=== PATIENT | male | born 1995 | race Caucasian/White ===

== ENCOUNTER 2023-09-23 13:28 | Inpatient (IN) | payer BC ==
[2023-09-23] MEDS ORDERED: Sodium Chloride 0.9% 10 ML Syringe FLUSH PRN ×2 (14:15→19:13)
[2023-09-23] MEDS ORDERED: Glucagon,Human Recombinant 1 MG Vial IM PRN ×2 (14:19→15:36)
[2023-09-23] MEDS ORDERED: 50% Dextrose in Water 50 ML Syringe IVPUSH PRN ×3 (14:19→17:05)
[2023-09-23] MEDS: Sodium Chloride 0.9% 1,000 ML IV ONE ×3 (14:22→16:34)
[2023-09-23 14:23] LABS: BASOPHILS ABSOLUTE AUTO 0.26 K/uL (0.00-0.10); EOSINOPHILS ABSOLUTE AUTO 0.03 K/uL (0.00-0.40); EOSINOPHILS PERCENT AUTO 0.1 % (0.0-5.4); HEMATOCRIT 46.4 % (38.4-49.7); HEMOGLOBIN 16.3 g/dL (12.9-16.9); IMMATURE GRAN PERCENT AUTO 4.1 % (0.0-0.7); LYMPHOCYTES ABSOLUTE AUTO 6.93 K/uL (0.8-3.3); MEAN CORPUSCULAR HEMOGLOBIN 31.6 pg (31.6-35.5); MEAN CORPUSCULAR HGB CONC 35.1 g/dL (31.6-35.5); MEAN CORPUSCULAR VOLUME 89.9 fL (81.4-99.0); MONOCYTES ABSOLUTE AUTO 6.35 K/uL (0.20-0.90); NEUTROPHILS ABSOLUTE AUTO 36.55 K/uL (1.0-7.6); PLATELET COUNT,PLT 346 K/uL (130-375); RED BLOOD CELL COUNT 5.16 M/uL (4.14-5.76)
[2023-09-23] MEDS: Insulin Regular, Human 100 Units/ML 3 ML Vial IVPUSH ONE ×2 (14:25→15:45)
[2023-09-23 14:27] LABS: A/G RATIO 0.9 (1.2-2.2); ALANINE AMINOTRANSFERASE,ALT 74 U/L (12-78); ALBUMIN 3.7 g/dL (3.4-5.0); ALKALINE PHOSPHATASE 178 U/L (46-116); ANION GAP 35.1 mmol/L (5.0-14.0); ASPARTATE AMNIOTRANSFERASE,AST 50 U/L (15-37); BILIRUBIN TOTAL 0.7 mg/dL (0.2-1.0); BLOOD UREA NITROGEN,BUN 51 mg/dL (7-18); CALCIUM 8.6 mg/dL (8.5-10.1); CHLORIDE,CL 78 mmol/L (100-108); CREATININE 2.4 mg/dL (0.8-1.3); EST CRCL DRUG DOSING (CG) 41.16 mL/min; ESTIMATED GFR 37 mL/min (>60); PROTEIN TOTAL,TP 7.7 g/dL (6.4-8.2); SODIUM,NA 111 mmol/L (140-148)
[2023-09-23 14:28] LABS: CARBON DIOXIDE,CO2 5 mmol/L (21-32); POTASSIUM,K 7.1 mmol/L (3.6-5.2)
[2023-09-23 14:29] LABS: GLUCOSE RANDOM 919 mg/dL (74-106)
[2023-09-23 14:40] LABS: CARBOXYHEMOGLOBIN 1.1 % (0.0-1.6); METHEMOGLOBIN 1.4 %; O2 SATURATION ARTERIAL 98.2 % (95.0-98.0); OXYHEMOGLOBIN 95.7 %
[2023-09-23 14:48] LABS: BASE EXCESS ARTERIAL 37.7 mm/L; BICARBONATE,ARTERIAL 1.2 mmol/L (22.0-26.0); PCO2 ARTERIAL 8.5 mmHg (35.0-42.0)
[2023-09-23 14:57] LABS: WHITE BLOOD CELL COUNT,WBC 52.3 K/uL (3.2-11.0)
[2023-09-23 14:58] LABS: BASOPHILS PERCENT AUTO 0.1 % (0.1-1.3)
[2023-09-23 14:59] LABS: IMMATURE GRAN ABSOLUTE AUTO 2.15 K/uL (0.00-0.23)
[2023-09-23 15:03] LABS: MAGNESIUM 2.6 mg/dL (1.8-2.4); PHOSPHORUS 7.8 mg/dL (2.5-4.9)
[2023-09-23 16:00] LABS: BICARBONATE,VENOUS 3.5 mmol/L; CARBOXYHEMOGLOBIN 1.5 % (0.0-1.6); METHEMOGLOBIN 1.5 %; O2 SATURATION VENOUS 73.3; OXYHEMOGLOBIN 71.1 %; PCO2 VENOUS 23.9 mm/Hg; PO2 VENOUS 44.3 mm/Hg
[2023-09-23 16:01] LABS: BASE EXCESS VENOUS 34.1 mm/L; PH,VENOUS 6.796 (7.350-7.450)
[2023-09-23 16:21] LABS: BLOOD UREA NITROGEN,BUN 52 mg/dL (7-18); CALCIUM 8.2 mg/dL (8.5-10.1); CHLORIDE,CL 84 mmol/L (100-108); CREATININE 2.3 mg/dL (0.8-1.3); EST CRCL DRUG DOSING (CG) 42.95 mL/min; ESTIMATED GFR 39 mL/min (>60)
[2023-09-23 16:32] LABS: ANION GAP 33.6 mmol/L (5.0-14.0); CARBON DIOXIDE,CO2 < 5 mmol/L (21-32); POTASSIUM,K 6.6 mmol/L (3.6-5.2); SODIUM,NA 116 mmol/L (140-148)
[2023-09-23 16:33] LABS: GLUCOSE RANDOM 832 mg/dL (74-106)
[2023-09-23] MEDS: Ondansetron 4 MG/2 ML SDV IVPUSH ONE (16:40)
[2023-09-23] MEDS ORDERED: Potassium Chloride 10% 20 MEQ/15 ML Soln 15 ML UD Cup PO PRN (17:05)
[2023-09-23] MEDS ORDERED: Potassium Chloride 20 MEQ in Premix Bag 1 BAG IV PRN (17:05)
[2023-09-23 17:39] LABS: CARBOXYHEMOGLOBIN 3.3 % (0.0-1.6); METHEMOGLOBIN 1.3 %; O2 SATURATION ARTERIAL 98.4 % (95.0-98.0); OXYHEMOGLOBIN 93.9 %; TOTAL HEMOGLOBIN 14.8 g/dL (13.5-18.0)
[2023-09-23 17:42] LABS: BASE EXCESS ARTERIAL 31.9 mm/L; BICARBONATE,ARTERIAL 2.1 mmol/L (22.0-26.0); PCO2 ARTERIAL 11.1 mmHg (35.0-42.0)
[2023-09-23] MEDS: Sodium Chloride 0.9% 2,000 ML IV PRN (17:42)
[2023-09-23] MEDS: Insulin Regular in 0.9 % NACL 100 ML IV SCH (17:43)
[2023-09-23 17:53] LABS: BLOOD UREA NITROGEN,BUN 52 mg/dL (7-18); CALCIUM 7.3 mg/dL (8.5-10.1); CHLORIDE,CL 90 mmol/L (100-108); EST CRCL DRUG DOSING (CG) 49.39 mL/min; ESTIMATED GFR 46 mL/min (>60); MAGNESIUM 2.2 mg/dL (1.8-2.4); PHOSPHORUS 5.1 mg/dL (2.5-4.9)
[2023-09-23 17:55] LABS: CARBON DIOXIDE,CO2 < 5 mmol/L (21-32); SODIUM,NA 119 mmol/L (140-148)
[2023-09-23 17:56] LABS: GLUCOSE RANDOM 694 mg/dL (74-106)
[2023-09-23 17:58] LABS: APPEARANCE,URINE SLIGHTLY CLOUDY (CLEAR); BILIRUBIN,URINE NEGATIVE (NEGATIVE); COLOR,URINE YELLOW (YELLOW); GLUCOSE,URINE 500 mg/dL (NEGATIVE); KETONES,URINE 40 mg/dL (NEGATIVE); LEUKOCYTE ESTERASE,URINE NEGATIVE (NEGATIVE); NITRITE,URINE NEGATIVE (NEGATIVE); OCCULT BLOOD,URINE LARGE (NEGATIVE); PH,URINE 5.5 (5.0-8.0); PROTEIN,URINE 30 mg/dL (NEGATIVE); UROBILINOGEN,URINE 0.2 EU/dL (0.2-1.0)
[2023-09-23 18:00] LABS: WBC,URINE 0-5 (0-5)
[2023-09-23 18:01] LABS: AMORPHOUS SEDIMENT,URINE NOT SEEN; BACTERIA,URINE FEW; EPITHELIAL CELLS,URINE MODERATE; MUCUS,URINE FEW
[2023-09-23] MEDS: Potassium Chloride 20 MEQ in Premix Bag 1 BAG IV ONE (18:01)
[2023-09-23] MEDS ORDERED: Polyethylene Glycol 3350 Powder 17 GM Packet PO PRN (19:13)
[2023-09-23] MEDS: Acetaminophen 325 MG Tab PO PRN (19:53)
[2023-09-23 21:34] LABS: BASE EXCESS ARTERIAL -27.3 mm/L; METHEMOGLOBIN 1.6 %; O2 SATURATION ARTERIAL 98.7 % (95.0-98.0); OXYHEMOGLOBIN 95.1 %; TOTAL HEMOGLOBIN 14.5 g/dL (13.5-18.0)
[2023-09-23 21:38] LABS: BICARBONATE,ARTERIAL 3.4 mmol/L (22.0-26.0); PCO2 ARTERIAL 13.1 mmHg (35.0-42.0)
[2023-09-23 21:52] LABS: CALCIUM 7.2 mg/dL (8.5-10.1); CREATININE 1.8 mg/dL (0.8-1.3); EST CRCL DRUG DOSING (CG) 54.88 mL/min; POTASSIUM,K 5.1 mmol/L (3.6-5.2)
[2023-09-23 21:54] LABS: ANION GAP 29.1 mmol/L (5.0-14.0)
[2023-09-23 23:41] LABS: MAGNESIUM 1.9 mg/dL (1.8-2.4); PHOSPHORUS 2.2 mg/dL (2.5-4.9); POTASSIUM,K 5.2 mmol/L (3.6-5.2)
[2023-09-23] MEDS: Ondansetron 4 MG/2 ML SDV IV PRN (23:42)
[2023-09-24 01:35] LABS: CALCIUM 7.7 mg/dL (8.5-10.1); CREATININE 1.9 mg/dL (0.8-1.3); EST CRCL DRUG DOSING (CG) 50.88 mL/min; POTASSIUM,K 5.1 mmol/L (3.6-5.2)
[2023-09-24 01:44] LABS: ANION GAP 24.1 mmol/L (5.0-14.0)
[2023-09-24] MEDS: Dextrose 5%-0.45% NaCl 1,000 ML IV PRN (02:15)
[2023-09-24 05:21] LABS: HEMATOCRIT 36.4 % (38.4-49.7); HEMOGLOBIN 14.1 g/dL (12.9-16.9); MEAN CORPUSCULAR HGB CONC 38.7 g/dL (31.6-35.5); RED BLOOD CELL COUNT 4.55 M/uL (4.14-5.76)
[2023-09-24 05:46] LABS: CALCIUM 7.7 mg/dL (8.5-10.1); CREATININE 1.8 mg/dL (0.8-1.3); EST CRCL DRUG DOSING (CG) 53.7 mL/min; MAGNESIUM 1.7 mg/dL (1.8-2.4); PHOSPHORUS 1.3 mg/dL (2.5-4.9); POTASSIUM,K 4.9 mmol/L (3.6-5.2)
[2023-09-24 05:48] LABS: ANION GAP 21.9 mmol/L (5.0-14.0)
[2023-09-24 05:49] LABS: WHITE BLOOD CELL COUNT,WBC 31.8 K/uL (3.2-11.0)
[2023-09-24 05:52] LABS: HEMOGLOBIN A1C 11.4 % (4.5-6.2)
[2023-09-24] MEDS: Magnesium Sulfate/Water 50 ML IV PRN (08:30)
[2023-09-24 09:31] LABS: CALCIUM 7.7 mg/dL (8.5-10.1); CREATININE 1.8 mg/dL (0.8-1.3); EST CRCL DRUG DOSING (CG) 53.7 mL/min; POTASSIUM,K 4.3 mmol/L (3.6-5.2)
[2023-09-24 10:35] LABS: ANION GAP 17.3 mmol/L (5.0-14.0)
[2023-09-24] MEDS: LORazepam 2 MG/ML SDV IVPUSH PRN (10:57)
[2023-09-24 11:33] LABS: MAGNESIUM 2.1 mg/dL (1.8-2.4); PHOSPHORUS 1.2 mg/dL (2.5-4.9); POTASSIUM,K 4.2 mmol/L (3.6-5.2)
[2023-09-24 14:13] LABS: CALCIUM 7.7 mg/dL (8.5-10.1); CREATININE 1.8 mg/dL (0.8-1.3); EST CRCL DRUG DOSING (CG) 54.76 mL/min; POTASSIUM,K 3.9 mmol/L (3.6-5.2)
[2023-09-24 14:14] LABS: ANION GAP 11.9 mmol/L (5.0-14.0)
[2023-09-24] MEDS ORDERED: Insulin Glargine,Human Rec. Analog 100 Units/ML 3 ML Pen SUBCUT SCH (15:30)
[2023-09-24 18:15] LABS: ANION GAP 14.8 mmol/L (5.0-14.0); CALCIUM 7.9 mg/dL (8.5-10.1); CREATININE 1.8 mg/dL (0.8-1.3); EST CRCL DRUG DOSING (CG) 54.76 mL/min; MAGNESIUM 1.9 mg/dL (1.8-2.4); PHOSPHORUS 0.8 mg/dL (2.5-4.9); POTASSIUM,K 3.8 mmol/L (3.6-5.2)
[2023-09-24] MEDS: Potassium Chloride 10% 20 MEQ/15 ML Soln 15 ML UD Cup PO PRN (18:35)
[2023-09-24] MEDS: Sodium Chloride 0.9% 250 ML ONE (19:07)
[2023-09-24] MEDS: Sodium Phosphate 60 MMOLE in Sodium Chloride 0.9% 250 ML IV PRN (19:47)
[2023-09-24 22:21] LABS: CALCIUM 7.7 mg/dL (8.5-10.1); CREATININE 1.7 mg/dL (0.8-1.3); EST CRCL DRUG DOSING (CG) 57.98 mL/min; MAGNESIUM 1.9 mg/dL (1.8-2.4); PHOSPHORUS 3.1 mg/dL (2.5-4.9)
[2023-09-25] MEDS: Potassium Chloride 10% 20 MEQ/15 ML Soln 15 ML UD Cup PO PRN ×2 (00:31→09:05)
[2023-09-25 02:15] LABS: CALCIUM 7.1 mg/dL (8.5-10.1); CREATININE 1.6 mg/dL (0.8-1.3); EST CRCL DRUG DOSING (CG) 61.61 mL/min; MAGNESIUM 1.8 mg/dL (1.8-2.4); POTASSIUM,K 3.7 mmol/L (3.6-5.2)
[2023-09-25 02:16] LABS: ANION GAP 14.7 mmol/L (5.0-14.0)
[2023-09-25] MEDS: Potassium Chloride 10% 20 MEQ/15 ML Soln 15 ML UD Cup ONE (02:41)
[2023-09-25 05:52] LABS: HEMATOCRIT 31.6 % (38.4-49.7); HEMOGLOBIN 12.5 g/dL (12.9-16.9); MEAN CORPUSCULAR HEMOGLOBIN 31.3 pg (31.6-35.5); MEAN CORPUSCULAR HGB CONC 39.6 g/dL (31.6-35.5); WHITE BLOOD CELL COUNT,WBC 17.7 K/uL (3.2-11.0)
[2023-09-25 06:02] LABS: CALCIUM 7.3 mg/dL (8.5-10.1); CREATININE 1.7 mg/dL (0.8-1.3); EST CRCL DRUG DOSING (CG) 57.98 mL/min; MAGNESIUM 1.9 mg/dL (1.8-2.4); PHOSPHORUS 1.9 mg/dL (2.5-4.9); POTASSIUM,K 3.8 mmol/L (3.6-5.2)
[2023-09-25 06:14] LABS: ANION GAP 12.8 mmol/L (5.0-14.0)
[2023-09-25 10:04] LABS: CALCIUM 7.3 mg/dL (8.5-10.1); CREATININE 1.6 mg/dL (0.8-1.3); EST CRCL DRUG DOSING (CG) 61.61 mL/min; MAGNESIUM 1.8 mg/dL (1.8-2.4); PHOSPHORUS 1.4 mg/dL (2.5-4.9); POTASSIUM,K 3.9 mmol/L (3.6-5.2)
[2023-09-25 10:11] LABS: ANION GAP 11.9 mmol/L (5.0-14.0)
[2023-09-25] MEDS ORDERED: Glucagon,Human Recombinant 1 MG Vial IM PRN (10:31)
[2023-09-25] MEDS ORDERED: 50% Dextrose in Water 50 ML Syringe IVPUSH PRN (10:31)
[2023-09-25] MEDS ORDERED: Glucose Gel 15 GM in 37.5 GM Tube PO PRN (11:23)
[2023-09-25] MEDS ORDERED: 50% Dextrose in Water 50 ML Syringe IV PRN (11:23)
[2023-09-25] MEDS: Insulin Glargine,Human Rec. Analog 100 Units/ML 3 ML Pen SUBCUT SCH (11:25)
[2023-09-25] MEDS: Insulin Lispro 100 Unit/ML 3 ML KwikPen SUBCUT SCH (17:15)
[2023-09-25 17:37] LABS: ANION GAP 10.9 mmol/L (5.0-14.0); CALCIUM 7.6 mg/dL (8.5-10.1); CREATININE 1.4 mg/dL (0.8-1.3); EST CRCL DRUG DOSING (CG) 72.88 mL/min; MAGNESIUM 1.9 mg/dL (1.8-2.4); PHOSPHORUS 1.3 mg/dL (2.5-4.9); POTASSIUM,K 3.9 mmol/L (3.6-5.2)
[2023-09-26 05:01] LABS: HEMATOCRIT 31.8 % (38.4-49.7); HEMOGLOBIN 12.1 g/dL (12.9-16.9); MEAN CORPUSCULAR HGB CONC 38.1 g/dL (31.6-35.5); MEAN CORPUSCULAR VOLUME 81.5 fL (81.4-99.0); RED BLOOD CELL COUNT 3.9 M/uL (4.14-5.76); WHITE BLOOD CELL COUNT,WBC 10.7 K/uL (3.2-11.0)
[2023-09-26 05:13] LABS: CALCIUM 7.8 mg/dL (8.5-10.1); CREATININE 1.2 mg/dL (0.8-1.3); EST CRCL DRUG DOSING (CG) 85.02 mL/min; PHOSPHORUS 1.6 mg/dL (2.5-4.9); POTASSIUM,K 3.2 mmol/L (3.6-5.2)
[2023-09-26 05:19] LABS: ANION GAP 10.2 mmol/L (5.0-14.0)
[2023-09-26] MEDS ORDERED: Bisacodyl 10 MG Supp RECTAL ONE (10:15)
[2023-09-26] MEDS: Polyethylene Glycol 3350 Powder 17 GM Packet PO ONE (12:48)
== END 2023-09-26 12:53 | disposition home or self-care (01) | DRG 420 ==
LOC: JP.ED 13:28 → JP.ICU 17:15
PROVIDERS: ADMIT Hospitalist; ATTEND Hospitalist
PROC: 4A133R1 Monitoring of Arterial Saturation, Peripheral, Percutaneous Approach (ICD-10-PCS; principal; 2023-09-23)
DX: E10.10 Type 1 diabetes mellitus with ketoacidosis without coma (principal); N17.9 Acute kidney failure, unspecified; E87.1 Hypo-osmolality and hyponatremia; H54.7 Unspecified visual loss; Z79.4 Long term (current) use of insulin
CPT/HCPCS: 36415; 36600; 80048; 80053; 80307; 81001; 82803; 82947; 83036; 83605; 83735; 84100; 84132; 85025; 85027; 87040; 93005; 93010; 96361; 96374; 99222; 99232; 99238; 99285; 99285-25; A9270-GY; J1815; J1815-GY; J2060; J2405; J3475; J7030; J7042; J7050

== ENCOUNTER 2023-09-28 13:27 | Emergency (ER) | payer BC | END 2023-09-28 14:37 | disposition home or self-care (01) | LOC: JP.ED 13:27 | DX: R60.0 Localized edema (principal); E10.9 Type 1 diabetes mellitus without complications; Z79.4 Long term (current) use of insulin; Z91.011 Allergy to milk products | CPT/HCPCS: 99283 ==